=== PATIENT | female | born 1970 | race Caucasian/White ===

== ENCOUNTER 2021-02-28 11:49 | Emergency (ER) | payer MEDICARE, SELFPAY ==
[2021-02-28 12:12] VITALS: BP 134/85; PULSE 80; RESP 28; TEMP 37.1; O2SAT 94; BMI 23.1
--- NOTE | 2021-02-28 12:12 | XR_ITS ---
PROCEDURE: XR CHEST PORTABLE CLINICAL HISTORY: soa COMPARISON: No exams were available for comparison FINDINGS: The cardiomediastinal silhouette and pulmonary vascularity are within normal limits. The lungs are clear without infiltrates, suspicious nodules, or pleural effusions. A small area of increased density overlies the right 3rd rib anteriorly and may be due to summation artifact from the ribs and scapula. Underlying nodule felt to be less likely but not completely excluded. Upright PA and lateral chest may provide further evaluation Calcified granuloma left midlung. No acute bony findings. IMPRESSION: No acute finding. Questionable right upper lobe nodule which may be better evaluated with nonemergent upright PA and lateral chest if clinically desired Dictated by: Mark Valdovinos MD 02/28/2021 13:04 Mark Valdovinos MD in [place] 02/28/2021 13:04
[2021-02-28 12:30] LABS: VBG Base Excess 3.4 mmol/L (-2.4-2.3); VBG HCO3 28.4 mmol/L (23-30); VBG Oxygen Saturation 81.7 % (50-70); VBG PCO2 48.6 mmol/L (35-51); VBG PH 7.39 mmol/L (7.31-7.41); VBG PO2 39.1 mmol/L (28-40); VBG Total CO2 29.9 mmol/L (23-27)
[2021-02-28 12:34] LABS: Chloride 104 mmol/L (98-107); Potassium 4.5 mmoL/L (3.5-5.1); Sodium 140 mmol/L (136-145)
[2021-02-28 12:36] LABS: Basophils # 0.1 K/mm3 (0-0.2); Basophils % 1.2 % (0.1-2.0); Eosinophils # 0.1 K/mm3 (0.0-0.4); Eosinophils % 1.7 % (0.1-12.0); Hematocrit 47.4 % (37.0-47.0); Hemoglobin 16.1 g/dL (12.2-16.2); Lymphocytes # 1.3 K/mm3 (0.7-4.5); Lymphocytes % 20.1 % (10-50); Mean Corpuscular HGB Conc 33.9 g/dL (31.8-35.4); Mean Corpuscular Hemoglobin 31.7 pg (27.0-31.2); Mean Corpuscular Volume 93.6 fl (81-99); Mean Platelet Volume 8.7 fl (7.4-10.4); Monocytes # 0.4 K/mm3 (0.1-1.0); Monocytes % 6.5 % (1.7-9.3); Neutrophils # 4.6 K/mm3 (1.8-7.8); Neutrophils % 70.6 % (37.0-80.0); Platelet Count 237 K/mm3 (142-424); Red Blood Count 5.06 M/mm3 (4.20-5.40); White Blood Count 6.5 K/mm3 (4.8-10.8)
[2021-02-28 12:37] LABS: Alanine Aminotransferase 16 U/L (12-78); Albumin Level 4.8 g/dl (3.5-5.0); Albumin/Globulin Ratio 1.7 (1.1-1.8); Alkaline Phosphatase 91 U/L (38-126); Anion Gap 12.5 mEq/L (5-15); Aspartate Amino Transferase 35 U/L (14-36); Bilirubin,Total 0.6 mg/dl (0.2-1.3); Blood Urea Nitrogen 3 mg/dl (7-17); Carbon Dioxide 28 mmol/L (22.0-30.0); Creatinine Clearance Estimated 110 mL/min (50-200); Estimated Glomerular Filt Rate 106 ml/min (>60); GFR (African American) 129 ML/MIN (>60); Globulin 2.8 g/dL (1.3-3.2); Total Protein,Serum 7.6 g/dl (6.3-8.2)
[2021-02-28 12:38] LABS: Calcium 9.8 mg/dl (8.4-10.2); Glucose 97 mg/dl (74-100)
[2021-02-28 12:46] LABS: NT Pro Brain Natriuretic Pep. 39.8 pg/mL (0-125)
--- NOTE | 2021-02-28 12:51 | PC.NURSE ---
Rad at bedside.
--- NOTE | 2021-02-28 13:01 | ECG_ITS ---
APPROVED REPORT Exam: Resting ECG HR:70 bpm ECG Measurements Heart Rate 70 AXES IA 134 P 79 QRSd 94 QRS 93 QT 406 T 69 QTc 438 Conclusion Normal sinus rhythm Rightward axis Borderline ECG Electronically signed by : Harry Chance, 03/02/2021 07:13:13
--- NOTE | 2021-02-28 13:12 | [facility].EDGENADL ---
ED Disposition Clinical Impression: Acute exacerbation of chronic obstructive airways disease Disposition: Home, Self-Care Condition on Discharge: Good Instructions: DI for Emphysema Additional Instructions: Return the emergency department for worsening breathing fever ear congestion or any other concerns within the next 8 hours otherwise follow-up with your primary care physician within the next 1 to 2 days Prescriptions: Phenylephrine HCl/Prometh HCl [Phenergan VC Plain 5mL UDC] 5 ml PO QID PRN 7 Days #120 udc PRN Reason: Cough Transmission Status: Pending to [id number] predniSONE [Prednisone 50mg Tab] 50 mg PO DAILY 5 Days #5 tab Transmission Status: Pending to [id number] Azithromycin [Z-Charles 250mg Tab*] 250 mg PO UD DOSE PK #6 tab Transmission Status: Pending to [facility] Referrals: Blanca Umana [Primary Care Provider] - - Critical Care Critical Care Time: No Attestation: On 02/28/21, the high probability of a clinically significant, sudden or life threatening deterioration of the following system(s) required my full and direct attention, intervention and personal management. The time I documented below is in addition to time spent performing reported procedures but includes the following listed in this critical care notation. Medical Decision Making - Medical Records Medical records reviewed: Yes: I reviewed the patient's medical records. - Seferino Inquiry Pt receiving controlled substance: No Vital Signs: 02/28/21 12:12 Temperature 98.8 F Temperature Source Oral Pulse Rate [Radial] 80 Respiratory Rate 28 H Blood Pressure [Right Arm] 134/85 Blood Pressure Mean [Right Arm] 101 Blood Pressure Position [Right Arm] Sitting 02 Sat by Pulse Oximetry 94 L Oxygen Delivery Method Room Air - Lab Data Lab Results 02/28/21 12:12: VBG pH 7.39, VBG pCO2 48.6, VBG pO2 39.1, VBG HCO3 28.4, VBG Total CO2 29.9 H, VBG O2 Saturation 81.7 H, VBG Base Excess 3.4 H 02/28/21 12:12: WBC 6.5, RBC 5.06, Hgb 16.1, Hct 47.4 H, MCV 93.6, MCH 31.7 H, MCHC 33.9, RDW 13.0, Plt Count 237, MPV 8.7, Neut % (Auto) 70.6, Lymph % (Auto) 20.1, Baldwin % (Auto) 6.5, Eos % (Auto) 1.7, Baso % (Auto) 1.2, Neut # (Auto) 4.6, Lymph # (Auto) 1.3, Baldwin # (Auto) 0.4, Eos # (Auto) 0.1, Baso # (Auto) 0.1 02/28/21 12:12: Sodium 140, Potassium 4.5, Chloride 104, Carbon Dioxide 28, Anion Gap 12.5, BUN 3 L, Creatinine 0.60, Estimated Creat Clear 110, Estimated GFR 106, Est GFR ( Amer) 129, Glucose 97, Calcium 9.8, Total Bilirubin 0.6, AST 35, ALT 16, Alkaline Phosphatase 91, NT-Pro-B Natriuret Pep 39.8, Total Protein 7.6, Albumin 4.8, Globulin 2.8, Albumin/Globulin Ratio 1.7 Result diagrams: 02/28/21 12:12 02/28/21 12:12 Orders (Tests/Meds): ED MEDICATIONS Generic Name Dose Route Start Last Admin Trade Name Freq PRN Reason Stop Dose Admin Albuterol/Ipratropium 3 ml 02/28/21 12:15 Ipratropium/Albuterol 3 Ml Neb IH 03/30/21 12:14 Q1H STEVE Discontinued Medications Generic Name Dose Route Start Last Admin Trade Name Freq PRN Reason Stop Dose Admin Methylprednisolone Sodium Succinate 125 mg 02/28/21 12:12 02/28/21 12:21 Methylprednisolone Sod Succ 125mg Vial IV 02/28/21 12:13 125 mg ONCE ONE Administration Medical Decision Narrative: 50-year-old female history of COPD presents with COPD exacerbation. She initially had wheezing, improved with DuoNeb and methylprednisolone in the emergency department. No other concerns for pulmonary embolism pneumothorax myocardial infarction or other emergent pathology. VBG did not show hypercapnic acidosis and otherwise her labs were unremarkable. She does have a nodule on her chest x-ray recommended to follow-up with primary care physician in 1 week to determine resolution versus need for further imaging. She is agreeable to this plan and will be discharged home with return precautions General Adult HPI - General Chief compl
[2021-02-28 14:03] VITALS: BP 132/75; PULSE 75; RESP 22; TEMP 36.6; O2SAT 97
== END 2021-02-28 14:04 | disposition home or self-care (01) ==
PROVIDERS: Emergency Provider Emergency Medicine; PCP Family Medicine
DX: J44.1 Chronic obstructive pulmonary disease with (acute) exacerbation (principal); Z88.5 Allergy status to narcotic agent
CPT/HCPCS: 71045; 80053; 82803; 83880; 85025; 93005; 96374; 99283